=== PATIENT | male | born 1975 | race Caucasian/White ===

== ENCOUNTER 2019-03-13 13:16 | Emergency (ER) | payer SELFPAY ==
[2019-03-13] MEDS ORDERED: DIPH/PERTUSS(ACELL)/TETANUS VAC/PF 0.5 ML SYR (>=10YO) IM ONE (14:01)
[2019-03-13] MEDS ORDERED: LIDOCAINE 1% INJ-PF (10 MG/ML) 30 ML SDV INJ ONE (14:01)
[2019-03-13] MEDS ORDERED: IBUPROFEN 800 MG TABLET PO ONE (14:03)
--- NOTE | 2019-03-13 14:05 | ER Document Report ---
HPI - HPI Patient complains to provider of: hand laceration Time Seen by Provider: 03/13/19 14:00 Onset: Just prior to arrival Onset/Duration: Sudden Quality of pain: Achy Severity: Moderate Pain Level: 2 Context: This 43-year-old male presents emergency department with lacerations to the knuckles of his right hand. Reports he was using a T-parts coordinator and it slipped and he cut his hand. He is not sure when his last tetanus was. Patient is able to flex and extend fingers without problems denies paresthesia. No active bleeding. No other complaints such as fever vomiting diarrhea. Patient is right-hand dominant. Associated Symptoms: None Exacerbated by: Denies, Movement Relieved by: Denies Similar symptoms previously: No Recently seen / treated by doctor: No - REPRODUCTIVE Reproductive: DENIES: : Past Medical History - General Information source: Patient - Social History Smoking Status: Unknown if Ever Smoked Chew tobacco use (# tins/day): No Frequency of alcohol use: None Drug Abuse: None Occupation: Preacher and horse [employer] Lives with: Family Family History: None Patient has suicidal ideation: No Patient has homicidal ideation: No GI Medical History: Reports: Hx Gastroesophageal Reflux Disease Past Surgical History: Reports: Other - Esophageal dilation Vertical Provider Document - CONSTITUTIONAL Agree With Documented VS: Yes Exam Limitations: No Limitations General Appearance: WD/WN, No Apparent Distress - INFECTION CONTROL TRAVEL OUTSIDE OF THE [place] IN LAST 30 DAYS: No - HEENT HEENT: Atraumatic, Normocephalic - NECK Neck: Supple - RESPIRATORY Respiratory: No Respiratory Distress - CARDIOVASCULAR Cardiovascular: Regular Rate - MUSCULOSKELETAL/EXTREMETIES Musculoskeletal/Extremeties: MAEW, FROM, Tender - NEURO Level of Consciousness: Awake, Alert, Appropriate Motor/Sensory: No Motor Deficit - DERM Integumentary: Warm, Dry, Laceration - Lacerations noted to the second third fourth fingers, #1 index finger with small skin avulsion to lateral pip, #2 3rd finger with 1cm L shape laceration across PIP, #3 4th finger with irregular laceration across pip and lateral pip T shape/L shape. no active bleeding, no tendon injury noted. flexes/extends without problem, denies paresthesia, cap refill <3 seconds Course - Re-evaluation Re-evalutation: 03/13/19 15:42 This 43-year-old male presents with lacerations to his second third and fourth fingers across his PIP on his right hand. Patient reports he was digging with a T pole digger and cut his hand. Unsure of last tetanus. Suture repair was done to the third and fourth finger. 8 sutures to the fourth finger 3 sutures to the third finger, small circular skin avulsion to the first lateral index finger no active bleeding. All fingers were cleaned well first soaked in warm water and normal saline and then scrubbed with normal saline and Shur-Clens. No tendon injury noted. Patient able to flex and extend fingers without problems denies paresthesia. Patient was instructed on signs and symptoms of infection. Instructed to keep an eye on fingers return for any signs of infection and and return in 10 to 14 days for removal of sutures. He verbalized understanding to all instructions. Hand x-ray negative for fracture. Hand X-Ray 03/13/19 14:00 IMPRESSION: NEGATIVE STUDY OF THE RIGHT HAND. NO RADIOGRAPHIC EVIDENCE OF ACUTE INJURY. - Vital Signs Vital signs: Temp Pulse Resp BP Pulse Ox 98.4 F 65 16 118/78 100 03/13/19 13:41 03/13/19 13:41 03/13/19 13:41 03/13/19 13:41 03/13/19 13:41 - Diagnostic Test Radiology reviewed: Image reviewed, Reports reviewed Procedures - Incision and Drainage none mL's of anesthetic: 8 Incision Method: Incision made with needle - none - unable to delete Hands back picture: 2 - NO I& D completed, laceration done, see laceration repair notes - Immobilization Right 3rd and 4th digit Time completed: 15:39 Immobilizer type: Finger splint (Static) Performed by: PCT Post-Proc Neuro Vasc Exam: Unchanged from pre-exam Alignment checked and good: Yes - Laceration/Wound Repair Right 3rd and 4th digit Wound length (cm): 1 Wound's Depth, Shape: Superficial Laceration pre-procedure: Shur-Clens applied Anesthetic type: 1% Lidocaine Volume Anesthetic (mLs): 8 Wound explored: Clean Irrigated w/ Saline (mLs): 100 Wound Repaired With: Sutures Suture Size/Type: 5:0, Ethilon Number of Sutures: 3 - middle finger, 8 to 4th finger Layer Closure?: No Hands back picture: 1 - irregular T and L shaped laceration closed with 8 sutures, splint placed- no tendon injury noted- both fingers cleaned well, first soaked in warm water, than cleaned with ns/shur clens 2 - L shaped laceration ~ 1cm,no tendon injury noted, 3 sutures placed, splint applied Discharge - Discharge Clinical Impression: right finger lacerations Condition: Stable Disposition: HOME, SELF-CARE Instructions: Cephalexin ([facility]), Hand Laceration ([facility]), Tetanus Immunization Given ([facility]) Additional Instructions: *You have been treated for lacerations to multiple fingers on your right hand *You have received a tetanus today *Your x-ray was negative for any kind of fractures. *Your hand has been well cleaned but there is always a chance of infection. Please monitor the sites for signs of infection such as increasing pain, redness, swelling, warmth *Keep your hand clean *Take medication as prescribed *Take motrin as indicated for pain *Maintain the splints to protect your fingers and sutures *Follow up with here in 10 to 14 days for suture removal *Return to ED for signs of infection, worsening condition, changes, needs Prescriptions: Cephalexin Monohydrate [Keflex 500 mg Capsule] 500 mg PO QID #20 capsule
--- NOTE | 2019-03-13 14:48 | RADIOLOGY REPORT (SQ) ---
EXAM DESCRIPTION: HAND RIGHT 3 VIEWS COMPLETED DATE/TIME: 03/13/2019 2:33 pm REASON FOR STUDY: laceration, pain COMPARISON: None. EXAM PARAMETERS: NUMBER OF VIEWS: Three views. TECHNIQUE: AP, lateral and oblique radiographic images acquired of the right hand. LIMITATIONS: None. FINDINGS: MINERALIZATION: Normal. BONES: No acute fracture or dislocation. No worrisome bone lesions. JOINTS: No effusions. SOFT TISSUES: No soft tissue swelling. No foreign body. OTHER: No other significant finding. IMPRESSION: NEGATIVE STUDY OF THE RIGHT HAND. NO RADIOGRAPHIC EVIDENCE OF ACUTE INJURY. TECHNICAL DOCUMENTATION: JOB ID: [id number] [employer]- All Rights Reserved Reading location - IP/workstation name: [email or web address]
[2019-03-13 15:54] VITALS: BP 116/70
== END 2019-03-13 15:54 | disposition home or self-care (01) ==
LOC: ER 13:16
DX: S61.212A Laceration without foreign body of right middle finger without damage to nail, initial encounter (principal); S61.214A Laceration without foreign body of right ring finger without damage to nail, initial encounter; S61.210A Laceration without foreign body of right index finger without damage to nail, initial encounter; W22.8XXA Striking against or struck by other objects, initial encounter; Y93.89 Activity, other specified
CPT/HCPCS: 99283; 90471; 73130; 90715; 12001; J3490